=== PATIENT | male | born 2000 | race African-American/Black ===

== ENCOUNTER 2025-07-20 01:02 | Emergency (ER) | payer OTHER | END 2025-07-20 05:51 | disposition short-term general hospital (02) | LOC: EEVIPCON 01:02 → NAV ERS 01:02 | DX: T18.2XXA Foreign body in stomach, initial encounter (principal); R45.851 Suicidal ideations; Z87.891 Personal history of nicotine dependence | CPT/HCPCS: 70360; 71046; 74018; 99285 ==